=== PATIENT | male | born 1965 | race Caucasian/White ===

== ENCOUNTER → 2017-01-16 | Outpatient (CLI) | payer OTHER ==
--- NOTE | 2017-01-16 17:04 | CR ---
EXAMINATION: Bilateral feet HISTORY: Pain COMPARISON: None TECHNIQUE: 3 views bilaterally FINDINGS: There is no acute osseous abnormality, dislocation, or fracture identified. Moderate Achil les insertional enthesophytes are noted. Bone mineralization appears normal. Mild degenerative yates es are noted within the midfoot bilaterally. Mild joint space thinning and early osteophyte changes are noted at the right first MTP joint with subchondral cystic change. No significant soft tissue swelling. IMPRESSION: 1. Mild degenerative changes noted bilaterally most prominent at the right first MTP joint.
== END ==
LOC: MW.CHORTHO 07:52
PROVIDERS: ATTEND Orthopaedic Surgery
DX: M25.571 Pain in right ankle and joints of right foot (principal); M25.572 Pain in left ankle and joints of left foot; G89.29 Other chronic pain
CPT/HCPCS: 736302650; 73630-50

== ENCOUNTER 2017-01-31 07:34 | Day surgery (SDC) | payer OTHER ==
[~2017-01-31 07:34] MED LIST: Lidocaine 2% 5 ML SDV ONE; Propofol 200 MG/20 ML SDV ONE; fentaNYL 100 MCG/2 ML SDV ONE
[2017-01-31] MEDS ORDERED: Lactated Ringers 1,000 ML IV SCH ×2 (08:00→09:15)
--- NOTE | 2017-01-31 08:11 | PCM.PREANE ---
Preanesthetic Assessment - Anesthesia/Transfusion/Family Hx Anesthesia History: Prior Anesthesia Without Reaction Transfusion History: No Prior Transfusion(s) - Physical Assessment O2 Sat by Pulse Oximetry: 96 Respiratory Rate: 16 Vital Signs: Last Vital Signs Temp 36.2 C 01/31/17 07:53 Pulse 63 01/31/17 07:53 Resp 16 01/31/17 07:53 BP 141/85 H 01/31/17 07:53 Pulse Ox 96 01/31/17 07:53 Height: 1.85 m Weight: 123.831 kg - Allergies Allergies/Adverse Reactions: Allergies Allergy/AdvReac Type Severity Reaction Status Date / Time No Known Allergies Allergy Verified 01/28/17 15:22 PreAnesthesia Questionnaire HEENT History: Reports: None Respiratory History: Reports: Sleep apnea Other Respiratory History: sleep apnea in the past, states is better after T&A, does not use CPAP Gastrointestinal History: Reports: GERD Musculoskeletal History: Reports: Back pain, chronic, Osteoarthritis (very painful ankles) Other Musculoskeletal History: degenerative disc disease Endocrine/Metabolic History: Reports: Obesity/BMI 30+ - Past Surgical History Head Surgeries/Procedures: Reports: None HEENT Surgical History: Reports: Adenoidectomy, Tonsillectomy, Other (see below ) (UPPP) - SUBSTANCE USE Smoking Status *Q: Never Smoker Recreational Drug Use History: No - HOME MEDS Home Medications: Home Meds Acetaminophen 1 tab PO ASDIRECTED PRN 01/28/17 [History] Fish Oil/[place]-3 Fatty Acids [Fish Oil 1,000 MG] 1,000 mg PO DAILY 01/28/17 [ History] Lactobacillus Combination No.4 [Probiotic] 1 tab PO DAILY 01/28/17 [History] Omeprazole 20 mg PO DAILY 01/28/17 [History] Pancreatin 500 mg PO DAILY 01/28/17 [History] Turmeric Root Extract [Turmeric] 500 mg PO DAILY 01/28/17 [History] - CURRENT (IN HOUSE) MEDS Current Meds: Current Medications Lactated Ringer's (Ringers, Lactated) 1,000 mls @ 125 mls/hr IV ASDIRECTED JAMESON Last Admin: 01/31/17 07:55 Dose: 125 mls/hr Discontinued Medications Fentanyl (Sublimaze) Confirm Administered Dose 100 mcg .ROUTE .STK-MED ONE Stop: 01/31/17 07:31 Lidocaine (Xylocaine-Mpf 2%) Confirm Administered Dose 5 ml .ROUTE .STK-MED ONE Stop: 01/31/17 07:31 Propofol (Diprivan 20 Ml) Confirm Administered Dose 400 mg .ROUTE .STK-MED ONE Stop: 01/31/17 07:31 Preanesthetic Assessment - ANESTHESIA/TRANSFUSION/FAMILY HX Anesthesia/Transfusion History: Prior Anesthesia Type of Anesthesia Reaction: Denies: Allergy, Anesthesia Awareness, Excessive Somnolence, Excessive Nausea/Vomiting, Excessive Itching, Excessive Shivering, Malignant Hyperthermia, Malignant Hyperthermia, Family History, Pseudocholinesterase Deficiency, Pseudocholinesterase Deficiency, Family History of, Urinary Retention, Unknown, Other (see below) Family History of Anesthesia Reaction: No Other Intubation History Comment: no known problems - REVIEW OF SYSTEMS Constitutional: Reports: no symptoms 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: no symptoms Respiratory: Reports: no symptoms Cardiovascular: Reports: no symptoms Other: Reports: None - PHYSICAL ASSESSMENT O2 Sat by Pulse Oximetry: 96 RR: 16 Vital Signs: Last Vital Signs Temp 36.2 C 01/31/17 07:53 Pulse 63 01/31/17 07:53 Resp 16 01/31/17 07:53 BP 141/85 H 01/31/17 07:53 Pulse Ox 96 01/31/17 07:53 Height: 1.85 m Weight: 123.831 kg ASA Class: 2 Mental Status: Alert & Oriented x3 Airway Class: Mallampati = 2 Dentition: Reports: Normal Dentition, [place](s) (multiple upper and lower (sides) ) Thyro-Mental Finger Breadths: 3 Mouth Opening Finger Breadths: 3 ROM/Head Extension: Full Respiratory Status: lungs clear to auscultation bilaterally Cardiovascular Status: regular rate & rhythm, normal S1, S2, no murmur, blood pressure WNL - ALLERGIES Allergies/Adverse Reactions: Allergies Allergy/AdvReac Type Severity Reaction Status Date / Time No Known Allergies Allergy Verified 01/28/17 15:22 - BLOOD Blood Available: No - ANESTHESIA PLAN Preop Beta Berta: No Anesthesia Type Planned: MAC - ACKNOWLEDGEMENTS Pt an Appropriate Candidate for the Planned Anesthesia: Yes Alternatives and Risks of Anesthesia Discussed w Pt/Guardian: Yes Pt/Guardian Understands and Agrees with Anesthesia Plan: Yes
[2017-01-31] MEDS ORDERED: Propofol 200 MG/20 ML SDV ONE (08:50)
--- NOTE | 2017-01-31 09:15 | PCM.OPNOTE ---
- General Post-Op/Procedure Note Date of Surgery/Procedure: 01/31/17 Operative Procedure(s): Esophagogastroduodenoscopy with biopsy. Colonoscopy. Pre Op Diagnosis: Epigastric pain. Intermittent rectal bleeding. Post-Op Diagnosis: Moderate gastritis. Sigmoid diverticulosis. Anesthesia Technique: MAC (ASA II) Primary Surgeon: Kwasi Layton Condition: Good Free Text/Narrative:: Dictation [id number]
--- NOTE | 2017-01-31 09:42 | PCM.POSTAN ---
POST ANESTHESIA ASSESSMENT - MENTAL STATUS Mental Status: alert, oriented - RESPIRATORY Respiratory Status: respiratory rate WNL, airway patent, O2 saturation stable - CARDIOVASCULAR CV Status: pulse rate WNL, blood pressure stable - GASTROINTESTINAL GI Status: no symptoms - POST OP HYDRATION Hydration Status: adequate & stable - OBSERVATIONS Free Text/Narrative:: no anesthesia problems
[2017-01-31 10:26] VITALS: BP 129/76
--- NOTE | 2017-01-31 12:46 | OR ---
SURGEON: Kwasi Layton M.D. DATE OF PROCEDURE: 01/31/2017 OPERATION PERFORMED: Esophagogastroduodenoscopy with biopsy. ANESTHESIA: MAC. ASA CLASSIFICATION: II. PREOPERATIVE DIAGNOSIS: Epigastric pain. POSTOPERATIVE DIAGNOSIS: Gastritis. DESCRIPTION OF PROCEDURE: The patient was taken to the endoscopy room and positioned on the endoscopy table in the supine position. Time-out was called for appropriate identification of patient and procedure. Monitored anesthesia care was provided. The bite block was placed between the patient's teeth. The gastroscope was inserted into the mouth and advanced without difficulty through the esophagus and stomach into the duodenum. The duodenum shows normal mucosa, no acute ulcerations, no evidence of duodenitis. The stomach does show mild to moderate gastritis. Antral biopsies were obtained to look for the presence of Helicobacter pylori. The gastroscope was retroflexed to visualize the proximal stomach. No ulcerations were noted. No tumors were seen. The gastroscope was then straightened and slowly withdrawn. The greater and lesser curvatures were carefully visualized. Again, no ulcerations were noted. No polyps were seen. The GE junction was well defined and shows no acute inflammatory areas or erosions. The esophagus demonstrated good contractility. The vocal cords were briefly visualized, noted to move symmetrically. The gastroscope was then removed with the patient having tolerated the procedure well. Following colonoscopy, he was taken to recovery room in stable condition. RONALD NICHOLSON /[id number]
--- NOTE | 2017-01-31 12:49 | OR ---
SURGEON: Kwasi Layton M.D. DATE OF PROCEDURE: 01/31/2017 OPERATION PERFORMED: Colonoscopy. ANESTHESIA: MAC. ASA CLASSIFICATION: II. PREOPERATIVE DIAGNOSIS: Intermittent rectal bleeding. POSTOPERATIVE DIAGNOSIS: Sigmoid diverticulosis. DESCRIPTION OF PROCEDURE: With the patient having completed esophagogastroduodenoscopy, he was now positioned in the left lateral decubitus position. The colonoscope was inserted into the rectum and advanced without difficulty to the cecum, where the colonoscope was retroflexed to visualize the ascending colon from below. The colonoscope was then straightened and slowly withdrawn. The cecum, ascending colon, hepatic flexure, transverse colon, splenic flexure, and descending colon showed no tumors, polyps, diverticula, angiodysplasia, or evidence of inflammatory bowel disease. The sigmoid colon demonstrates numerous diverticula. No stricture or spasm was noted. No sigmoid polyps were encountered. The colonoscope was withdrawn to the rectum and retroflexed to visualize the anal orifice from above. No tumors or polyps were seen, and there were no acute hemorrhoidal changes. The colonoscope was then straightened, the rectum aspirated, and the colonoscope removed. The patient tolerated the procedure well and was taken to recovery room in stable condition. RONALD / LYN /[id number]
== END 2017-01-31 10:00 | disposition home or self-care (01) ==
LOC: MW.SDS 07:34
PROVIDERS: ATTEND Surgery
PROC: 0DB68ZX Excision of Stomach, Via Natural or Artificial Opening Endoscopic, Diagnostic (ICD-10-PCS; principal; 2017-01-31)
PROC: 0DJD8ZZ Inspection of Lower Intestinal Tract, Via Natural or Artificial Opening Endoscopic (ICD-10-PCS; 2017-01-31)
DX: K29.50 Unspecified chronic gastritis without bleeding (principal); K57.30 Diverticulosis of large intestine without perforation or abscess without bleeding; K21.9 Gastro-esophageal reflux disease without esophagitis; G47.30 Sleep apnea, unspecified; M19.90 Unspecified osteoarthritis, unspecified site; E66.9 Obesity, unspecified; G89.29 Other chronic pain; M54.9 Dorsalgia, unspecified; Z79.899 Other long term (current) drug therapy; Z90.89 Acquired absence of other organs; Z68.36 Body mass index [BMI] 36.0-36.9, adult
CPT/HCPCS: 43239; 45378; 88305; J3010; J7120; 00740; J2704